=== PATIENT | male | born 1960 | race Caucasian/White ===

== ENCOUNTER 2017-04-07 12:56 | Emergency (ER) | payer BC ==
--- NOTE | 2017-04-07 13:04 | EDM.PDOC ---
ED HPI GENERAL MEDICAL PROBLEM - General Chief Complaint: Trauma Stated Complaint: Fell of roof Time Seen by Provider: 04/07/17 12:58 Source of Information: Reports: Patient History Limitations: Reports: No Limitations - History of Present Illness INITIAL COMMENTS - FREE TEXT/NARRATIVE: Patient fell of roof onto ground. States he "turtled up into a ball" before hitting ground. Hit back on small tree stump, and right hip on piece of cement. Has some abrasions (mild) on hands/arms, right hip,left knee and lower leg, and back. Denies hitting head or injury to neck. No numbness/tingling. Hurts to bear weight on right leg but was able to drive son to ER to be seen (he fell off roof too). No other complaints of injury during ROS. History of HTN. - Related Data Allergies Allergy/AdvReac Type Severity Reaction Status Date / Time lisinopril Allergy Cough Verified 04/07/17 13:06 prochlorperazine Allergy Seizure Verified 04/07/17 13:06 [From Compazine] activity, Cardiac arrest Home Meds: Home Meds Ketorolac [Toradol] 10 mg PO Q6H PRN #15 tablet 04/07/17 [Rx] traMADol [Ultram] 50 mg PO Q6H PRN #20 tablet 04/07/17 [Rx] Past Medical History Cardiovascular History: Reports: Hypertension Review of Systems - Review of Systems Review Of Systems: See Below Constitutional: Reports: No Symptoms Eyes: Reports: No Symptoms. Denies: Blurred Vision, Foreign Body Sensation, Pain, Photophobia, Vision Change Ears: Reports: No Symptoms Nose: Reports: No Symptoms Mouth/Throat: Reports: No Symptoms. Denies: Loose Teeth, Difficulty Swallowing Respiratory: Reports: No Symptoms. Denies: Shortness of Breath, Pleuritic Chest Pain Cardiovascular: Reports: No Symptoms. Denies: Chest Pain GI/Abdominal: Reports: Nausea. Denies: Abdominal Pain, Diarrhea, Vomiting Genitourinary: Reports: No Symptoms Musculoskeletal: Reports: Back Pain (right mid-back), Other (right hip area). Denies: Neck Pain, Shoulder Pain, Arm Pain, Hand Pain, Leg Pain, Foot Pain, Joint Pain, Joint Swelling, Muscle Stiffness Skin: Reports: Other (scattered abrasions) Neurological: Reports: No Symptoms, Difficulty Walking (has pain in right hip). Denies: Confusion, Dizziness, Headache, Numbness, Paresthesia, Pre-Existing Deficit, Syncope, Tingling, Tremors, Weakness Psychiatric: Reports: No Symptoms ED EXAM, GENERAL - Physical Exam Exam: See Below Exam Limited By: No Limitations General Appearance: Alert, WD/WN, No Apparent Distress Eye Exam: Bilateral Eye: EOMI, PERRL Ears: Normal External Exam, Normal Canal, Hearing Grossly Normal, Normal TMs Nose: Normal Inspection, Normal Mucosa, No Blood Throat/Mouth: Normal Inspection, Normal Lips, Normal Teeth, Normal Gums, Normal Oropharynx, Normal Voice, No Airway Compromise Head: Atraumatic, Normocephalic Neck: Normal Inspection, Supple, Non-Tender, Full Range of Motion. No: Tender Lateral, Tender Midline Respiratory/Chest: No Respiratory Distress, Lungs Clear, Normal Breath Sounds, No Accessory Muscle Use, Chest Non-Tender, Other (abrasion noted right lateral chest.) Cardiovascular: Normal Peripheral Pulses, Regular Rate, Rhythm, No Edema, No Murmur Peripheral Pulses: 2+: Radial (L), Radial (R), Dorsalis Pedis (L), Dorsalis Pedis (R) GI/Abdominal: Normal Bowel Sounds, Soft, Non-Tender, No Distention, Pelvis Stable (Male) Exam: Deferred Rectal (Males) Exam: Normal Exam, Normal Rectal Tone, Prostate Normal, Heme - Stool Back Exam: Other (Soft tissue tenderness left mid back. No redness/swelling/ abrasions noted. ). No: Vertebral Tenderness Extremities: No Pedal Edema, Normal Capillary Refill, Other (Some tenderness with palpation lateral right hip. Leg otherwise nontender. Patient can move all 4 limbs well but does have some discomfort and limitation raising right leg due to associated discomfort right hip. ). No: Mottled, Pallor, Redness Neurological: Alert, Oriented, CN II-XII Intact, Normal Cognition, Normal Reflexes, No Motor/Sensory Deficits (except for some pain limitation with movement of right leg. ) Psychiatric: Normal Affect, Normal Mood Skin Exam: Warm, Dry, Normal Color, Other (Scattered abrasions as noted in HPI. ) Course - Orders/Labs/Meds Orders: Active Orders 24 hr Category Date Time Status Chest 1V Frontal [CR] Stat Exams 04/07/17 12:59 Taken Femur Min 1V Rt [CR] Stat Exams 04/07/17 13:03 Taken Lumbar Spine 2 or 3V [CR] Stat Exams 04/07/17 14:12 Taken Pelvis 1V or 2V [CR] Stat Exams 04/07/17 12:59 Taken UA W/MICROSCOPIC [URIN] Stat Lab 04/07/17 13:00 Uncollected Labs: Laboratory Tests 04/07/17 04/07/17 Range/Units 13:00 13:00 WBC 9.2 (4.0-10.2) K/uL RBC 5.64 H (4.33-5.41) M/uL Hgb 17.4 H (13.1-16.8) g/dL Hct 49.8 H (39.0-49.0) % MCV 88.3 (84.0-98.0) fL MCH 30.9 (28.2-33.3) pg MCHC 34.9 (31.7-36.0) g/dL RDW 14.6 H (11.2-14.1) % Plt Count 215 (150-350) K/uL Neut % (Auto) 68.9 (45.0-80.0) % Lymph % (Auto) 17.0 (10.0-50.0) % [place] % (Auto) 10.2 (2.0-14.0) % Eos % (Auto) 3.4 (0.0-5.0) % Baso % (Auto) 0.5 (0.0-2.0) % Neut # (Auto) 6.34 (1.40-7.00) K/uL Lymph # (Auto) 1.56 (0.50-3.50) K/uL [place] # (Auto) 0.94 (0.00-1.00) K/uL Eos # (Auto) 0.31 (0.00-0.50) K/uL Baso # (Auto) 0.05 (0.00-0.20) K/uL Sodium 140 (136-145) mmol/L Potassium 3.8 (3.5-5.1) mmol/L Chloride 104 (98-107) mmol/L Carbon Dioxide 27.6 (21.0-32.0) mmol/L BUN 27 H (7-18) mg/dL Creatinine 1.25 H (0.51-1.17) mg/dL Est Cr Clr Drug Dosing 80.74 mL/min Estimated GFR (MDRD) > 60 mL/min Glucose 98 (74-106) mg/dL Calcium 9.2 (8.5-10.1) mg/dL Total Bilirubin 0.9 (0.2-1.0) mg/dL AST 46 H (15-37) U/L ALT 44 (12-78) U/L Alkaline Phosphatase 55 (46-116) IU/L Total Protein 7.0 (6.4-8.2) g/dL Albumin 4.0 (3.4-5.0) g/dL Meds: Medications Discontinued Medications Generic Name Dose Route Start Last Admin Trade Name Freq PRN Reason Stop Dose Admin Hydromorphone HCl 1 mg 04/07/17 13:44 04/07/17 14:09 Dilaudid IVPUSH 04/07/17 13:45 Not Given ONETIME ONE Sodium Chloride 1,000 mls @ 999 mls/hr 04/07/17 13:43 04/07/17 14:10 Normal Saline IV 04/07/17 14:43 Not Given .BOLUS ONE Ketorolac Tromethamine 30 mg 04/07/17 14:58 04/07/17 15:21 Toradol IVPUSH 04/07/17 14:59 30 mg ONETIME ONE Administration Morphine Sulfate 5 mg 04/07/17 13:10 04/07/17 14:09 Morphine IVPUSH 04/07/17 13:11 Not Given ONETIME ONE Morphine Sulfate Confirm 04/07/17 13:14 04/07/17 14:09 Morphine Administered 04/07/17 13:15 Not Given Dose 10 mg .ROUTE .STK-MED ONE Neomycin/Polymyxin/Bacitracin 1 each 04/07/17 14:45 04/07/17 15:21 Triple Antibiotic Oint TOP 04/07/17 14:46 1 each ONETIME ONE Administration Ondansetron HCl 8 mg 04/07/17 13:10 04/07/17 14:10 Zofran IVPUSH 04/07/17 13:11 Not Given ONETIME ONE Ondansetron HCl Confirm 04/07/17 13:14 04/07/17 14:10 Zofran Administered 04/07/17 13:15 Not Given Dose 8 mg .ROUTE .STK-MED ONE Oxycodone/Acetaminophen 2 tab 04/07/17 16:09 04/07/17 16:15 Percocet 325-5 Mg PO 04/07/17 16:10 2 tab ONETIME ONE Administration - Radiology Interpretation Free Text/Narrative:: Xrays of chest/pelvis/right femur performed. No obvious fracture. No noted pneumothorax. Read by Radiology - Re-Assessments/Exams Free Text/Narrative Re-Assessment/Exam: 04/07/17 14:29 Pain medication given. Patient said he was "fast metabolizer"of pain medication. Initial labs suggested dehydration. Patient and son have been outside working recently of the [employer]. IV fluid bolus ordered. Additional lumbar films ordered. Free Text/Narrative Re-Assessment/Exam: 04/07/17 14:58 Radiology notified us that all xrays appear unremarkable for acute injury. Free Text/Narrative Re-Assessment/Exam: 04/07/17 16:33 [address]charged home. More comfortable. Reading magazines while being observed in ER. Able to ambulate/dress self. Eating and drinking well. Wished to go home. felt comfortable taking him home and will return to ER if she notices any unusual changes suggesting other injuries. He has follow up appointment with primary provider tomorrow in [place]. Departure - Departure Time of Disposition: 16:18 Disposition: Home, Self-Care 01 Condition: Good Clinical Impression: Abrasion, multiple sites, Fall from roof as cause of accidental injury Contusion of right hip and thigh Qualifiers: Encounter type: initial encounter Qualified Code(s): S70.01XA - Contusion of right hip, initial encounter Contusion of right chest wall Qualifiers: Encounter type: initial encounter Qualified Code(s): S20.211A - Contusion of right front wall of thorax, initial encounter - Discharge Information Prescriptions: Ketorolac [Toradol] 10 mg PO Q6H PRN #15 tablet PRN Reason: Pain traMADol [Ultram] 50 mg PO Q6H PRN #20 tablet PRN Reason: Pain Instructions: Chest Contusion, Abrasion, [id number] Referrals: BERTA NICHOLS [Other] Forms: ED Department Discharge Additional Instructions: Rest/ice. Stay off roof while on narcotics. TAKE IT EASY. Follow up tomorrow with your primary provider as scheduled. Follow up in ER immediately if you have neurologic changes, shortness of breath or abdominal pain. - My Orders Last 24 Hours: My Active Orders 04/07/17 12:59 Chest 1V Frontal [CR] Stat Pelvis 1V or 2V [CR] Stat 04/07/17 13:00 UA W/MICROSCOPIC [URIN] Stat 04/07/17 13:03 Femur Min 1V Rt [CR] Stat 04/07/17 14:12 Lumbar Spine 2 or 3V [CR] Stat - Assessment/Plan Last 24 Hours: My Active Orders 04/07/17 12:59 Chest 1V Frontal [CR] Stat Pelvis 1V or 2V [CR] Stat 04/07/17 13:00 UA W/MICROSCOPIC [URIN] Stat 04/07/17 13:03 Femur Min 1V Rt [CR] Stat 04/07/17 14:12 Lumbar Spine 2 or 3V [CR] Stat
[2017-04-07] MEDS ORDERED: Ondansetron 4 MG/2 ML SDV IVPUSH ONE (13:10)
[2017-04-07] MEDS ORDERED: Morphine 10 MG/ML Syringe IVPUSH ONE (13:10)
[2017-04-07] MEDS ORDERED: Morphine 10 MG/ML Syringe ONE (13:14)
[2017-04-07] MEDS ORDERED: Ondansetron 4 MG/2 ML SDV ONE (13:14)
[2017-04-07] MEDS ORDERED: Sodium Chloride 0.9% 10 ML Syringe ONE (13:15)
[2017-04-07 13:20] LABS: CHLORIDE,CL 104 mmol/L (98-107); SODIUM,NA 140 mmol/L (136-145)
[2017-04-07] MEDS ORDERED: Sodium Chloride 0.9% 1,000 ML IV ONE (13:43)
[2017-04-07] MEDS ORDERED: HYDROmorphone 1 MG/ML Syringe IVPUSH ONE (13:44)
[2017-04-07] MEDS ORDERED: Bacitracin/Neomycin/Polymyxin B Oint 0.9 GM U/D Packet TOP ONE (14:45)
[2017-04-07] MEDS ORDERED: Ketorolac 30 MG/ML SDV IVPUSH ONE (14:58)
[2017-04-07] MEDS ORDERED: Acetaminophen/oxyCODONE 325-5 MG Tab PO ONE (16:09)
[2017-04-07 17:39] VITALS: BP 124/72
== END 2017-04-07 17:00 | disposition home or self-care (01) ==
LOC: LL.ED 12:56
DX: S20.211A Contusion of right front wall of thorax, initial encounter (principal); S70.01XA Contusion of right hip, initial encounter; I10 Essential (primary) hypertension; Z88.8 Allergy status to other drugs, medicaments and biological substances; W13.2XXA Fall from, out of or through roof, initial encounter
CPT/HCPCS: 36415; 71010; 72100; 72170; 73551; 80053; 82272; 85025; 96361; 96374; 96375; 99285; A9270; G0390; J1170; J1885; J2270; J2405; J7030; J7050